=== PATIENT | female | born 1940 | race Caucasian/White ===

== ENCOUNTER 2020-12-25 12:30 | Emergency (ER) | payer MEDICARE, MEDICAID, SELFPAY ==
--- NOTE | ~2020-12-25 | CT_ITS ---
EXAMINATION: CT ABDOMEN AND PELVIS WITH CONTRAST CLINICAL INFORMATION: Abdominal pain and vomiting. COMPARISON: CT scan of July 17, 2010 TECHNIQUE: Multidetector volumetric images were obtained from the superior aspect of the liver through the pubic symphysis following administration 85 mL of Omnipaque 350 intravenous contrast. Sagittal and coronal reformatted images were obtained on the technologist's workstation. Oral contrast: No This CT examination was performed using dose optimization techniques as appropriate, variously including the following: *Automated exposure control *Adjustment of mA and/or kV according to patient size (this includes techniques or standardized protocols for targeted exams where dose is matched to indication/reason for exam; i.e. extremities or head) *Use of iterative reconstruction technique DLP: 324 mGy-cm FINDINGS: LUNG BASES: No pleural or pericardial effusion appreciated. The right hemidiaphragm is elevated. LIVER, GALLBLADDER, AND BILIARY TREE: The liver is normal in size, shape, and attenuation. No suspicious focal hepatic lesion or biliary ductal dilatation is present. There is a 1 cm low-density lesion consistent with stable cyst. Gallbladder is not identified. PANCREAS: No suspicious mass identified. No peripancreatic inflammatory change. SPLEEN: Unremarkable. ADRENAL GLANDS: Unremarkable. KIDNEYS AND URETERS: The kidneys have lobular contours. No suspicious mass identified. There is mild prominence of the left upper collecting system without dilatation of left ureter and without calculi identified. There are a few small cortical low density lesions seen within the left kidney likely representing small cysts. BLADDER: Urinary bladder has a very thickened with some pericystitis streaking. There is also mucosal enhancement present. No air is seen within the Above has the appearance of acute cystitis or infiltrating lesion of the urinary bladder. The prominence of the left upper collecting system may be related to back pressure from the urinary bladder. GASTROINTESTINAL TRACT: No dilated loops of large or small bowel are evident. No free air or free fluid. There is a large amount of stool seen distending the recto-sigmoid.. Between the urinary bladder and distended rectum and below the uterus there is an air fluid collection with some rim enhancement with the appearance of possible abscess. The collection measures approximately 6.2 x 1.6 x 2.4 cm in size. There is diverticulosis without definite diverticulitis of the sigmoid. Question the above appearance may be related to a colovaginal fistula. No gas is seen to suggest fistula to the urinary bladder. ABDOMINAL WALL: No significant hernia is appreciated. LYMPH NODES: No lymphadenopathy appreciated. VASCULAR: Portal vein patent. No abdominal aortic aneurysm. There is a single vessel giving supply to the celiac artery and superior mesenteric artery. PELVIC VISCERA: Appearance as described above in gastrointestinal tract section with abnormal enhancing urinary bladder and ureter between the urinary bladder and below the uterus.. OSSEOUS STRUCTURES: No suspicious destructive bony lesions identified. Osteopenia is present. There is a hemangioma within the T9 vertebral body. There is scoliosis of the lumbar spine convex left. There is multi level degenerative disc disease seen. Osteitis pubis present. CT/CT abdomen pelvis w con IMPRESSION: Thick walled enhancing urinary bladder with some adjacent stranding which may be on the basis of an infectious process versus infiltrating lesion. Air-fluid collection between the rectum and urinary bladder and inferior to the uterus which may be related to a vaginal fistula or abscess of the pathology. No gas is seen within the urinary bladder to suggest fistula to either bowel or vagina.
[2020-12-25 12:40] VITALS: BP 127/74; BP 136/62; PULSE 85; PULSE 93; RESP 16; TEMP 36.6; O2SAT 97; O2SAT 99; BMI 22.3
--- NOTE | 2020-12-25 12:47 | ECG_ITS ---
Test Reason : ABDOMINAL PAIN Blood Pressure : / mmHG Vent. Rate : 089 BPM Atrial Rate : 089 BPM P-R Int : 134 ms QRS Dur : 078 ms QT Int : 404 ms P-R-T Axes : 035 -20 012 degrees QTc Int : 491 ms Normal sinus rhythm Prolonged QT Abnormal ECG When compared with ECG of 06-OCT-2018 11:29, No significant change was found Referred By: Joaquina Lee Electronically Signed By:LEONARDO BRYANT MD
--- NOTE | 2020-12-25 12:49 | ED_ITS ---
HPI - General Adult General Chief complaint: General Medical <Joaquina Lee NP - Last Filed: 12/25/20 18:30> Stated complaint: FTT <Joaquina Lee NP - Last Filed: 12/25/20 18:30> Time Seen by Provider: 12/25/20 12:42 <Joaquina Lee NP - Last Filed: 12/25/20 18:30> Source: family and EMS <Joaquina Lee NP - Last Filed: 12/25/20 18:30> Mode of arrival: EMS <Joaquina Lee NP - Last Filed: 12/25/20 18:30> Limitations: altered mental status <Joaquina Lee NP - Last Filed: 12/25/20 18:30> History of Present Illness HPI narrative: 80-year-old female with a past medical history of multiple sclerosis, dementia, hypertension, GERD here with complaints of upper abdominal pain and nausea and vomiting for the last 3 days. Decreased p.o. intake. Now very weak and unable to ambulate at home. Has a history of GERD. Takes omeprazole daily. No diarrhea, constipation, fevers, chills, urinary symptoms. <Joaquina Lee NP - Last Filed: 12/25/20 18:30> Related Data Allergies/adverse reactions: Allergies Allergy/AdvReac Type Severity Reaction Status Date / Time Sulfa (Sulfonamide Allergy Unknown Verified 03/17/18 00:00 Antibiotics) acetaminophen [From PERCOCET] AdvReac Unknown N/V Unverified 02/22/20 14:44 oxycodone [From PERCOCET] AdvReac Unknown N/V Unverified 02/22/20 14:44 sulfamethoxazole AdvReac Unknown 'SICK' Unverified 02/22/20 14:44 [From BACTRIM] trimethoprim [From BACTRIM] AdvReac Unknown 'SICK' Unverified 02/22/20 14:44 <Joaquina Lee NP - Last Filed: 12/25/20 18:30> Review of Systems Review of Systems: Yes Unobtainable due to mental status (underlying dementia, hpi is limited ) <Joaquina Lee NP - Last Filed: 12/25/20 18:30> Gastrointestinal: Gastrointestinal: Reports abdominal pain, Reports nausea and Reports vomiting <Joaquina Lee NP - Last Filed: 12/25/20 18:30> Neurologic: Denies Abnormal speech present and Reports confusion <Joaquina Lee NP - Last Filed: 12/25/20 18:30> Psychiatric: Psychiatric: Reports confusion <Joaquina Lee NP - Last Filed: 12/25/20 18:30> [facility] Past Medical History Attestation statement: The following information was validated with the patient. <Joaquina Lee NP - Last Filed: 12/25/20 18:30> Source: old records reviewed and nursing notes reviewed <Joaquina Lee NP - Last Filed: 12/25/20 18:30> Medical History: Medical History Dementia HTN (hypertension) Multiple sclerosis Orthostatic hypotension <Joaquina Lee NP - Last Filed: 12/25/20 18:30> Social History Social History: Social History Smoked in Last 30 Days: No Use of substances other than those prescribed or required for medical reasons: No Advance Directives: No Advance Directives Information Provided: Yes <Joaquina Lee NP - Last Filed: 12/25/20 18:30> Physical Exam Vital Signs: Vital Signs: Last Vital Signs Temp 97.7 F 12/25/20 16:09 Pulse 75 12/25/20 16:09 Resp 18 12/25/20 18:00 BP 168/90 H 12/25/20 16:09 Pulse Ox 98 12/25/20 16:09 Body Mass Index 22.3 <Joaquina Lee NP - Last Filed: 12/25/20 18:30> Vital Signs: Last Vital Signs Temp 97.7 F 12/25/20 16:09 Pulse 75 12/25/20 16:09 Resp 18 12/25/20 18:00 BP 168/90 H 12/25/20 16:09 Pulse Ox 98 12/25/20 16:09 Body Mass Index 22.3 <Grzegorz Mcgregor MD - Last Filed: 12/25/20 17:24> Const: Other: Thin appearing, disheveled <Joaquina Lee NP - Last Filed: 12/25/20 18:30> General: awake and confusion <Joaquina Lee NP - Last Filed: 12/25/20 18:30> Orientation/consciousness: confusion <Joaquina Lee NP - Last Filed: 12/25/20 18:30> Limitations: no limitations <Joaquina Lee NP - Last Filed: 12/25/20 18:30> HENMT: Head: Yes normal to inspection <Joaquina Lee NP - Last Filed: 12/25/20 18:30> Ears: hearing grossly normal bilaterally <Joaquina Lee NP - Last Filed: 12/25/20 18:30> General nose exam: Normal external nose present <Joaquina Lee NP - Last Filed: 12/25/20 18:30> Face and sinus: Yes normal facial exam <Joaquina Lee NP - Last Filed: 12/25/20 18:30> Mouth: Normal oral and palatal mucosa present <Joaquina Lee NP - Last Filed: 12/25/20 18:30> Throat: Yes posterior oropharynx normal <Joaquina Lee NP - Last Filed: 12/25/20 18:30> Eyes: General: appearance normal, both eyes and all related structures < Joaquina Lee NP - Last Filed: 12/25/20 18:30> Pupils: Equal, round and reactive pupils present <Joaquina Lee NP - Last Filed: 12/25/20 18:30> Neck: Neck: Yes normal visual inspection <Joaquina Lee NP - Last Filed: 12/25/20 18:30> Chest: Chest palpation & inspection: normal inspection of the chest <Joaquina Lee NP - Last Filed: 12/25/20 18:30> Resp: Effort & Inspection: normal respiratory effort <Joaquina Lee NP - Last Filed: 12/25/20 18:30> Auscultation: clear to auscultation bilaterally <Joaquina Lee NP - Last Filed: 12/25/20 18:30> Cardio: Rate: regular rate <Joaquina Lee NP - Last Filed: 12/25/20 18:30> Rhythm: regular rhythm <Joaquina Lee NP - Last Filed: 12/25/20 18:30> Peripheral pulses: Peripheral pulses 2+ throughout <Joaquina Lee NP - Last Filed: 12/25/20 18:30> GI: Inspection: Yes normal to inspection <Joaquina Lee NP - Last Filed: 12/25/20 18:30> Palpation (GI): Soft to palpation and Tenderness to palpation present (GI) (Mild epigastric tenderness. No rebound or guarding) <Joaquina Lee NP - Last Filed: 12/25/20 18:30> Auscultation: normal bowel sounds <Joaquina Lee NP - Last Filed: 12/25/20 18:30> Back/Spine/Pelvis: Thoracic/Lumbar Spine: thoracic and lumbar spine normal to inspection <Joaquina Lee NP - Last Filed: 12/25/20 18:30> Skin: General skin exam: no rashes or lesions noted <Joaquina Lee NP - Last Filed: 12/25/20 18:30> Neuro: General: no focal motor deficits, normal sensation to monofilament and confusion <Joaquina Lee NP - Last Filed: 12/25/20 18:30> Cranial nerves: Yes Equal, round and reactive pupils present <Joaquina Lee NP - Last Filed: 12/25/20 18:30> Cognition (Neuro): normal cognition <Joaquina Lee NP - Last Filed: 12/25/20 18:30> Speech: No Abnormal speech present <Joaquina Lee NP - Last Filed: 12/25/20 18:30> Gait exam (Neuro): Normal gait present <Joaquina Lee NP - Last Filed: 12/25/20 18:30> Motor exam (neuro): 5/5 motor strength present throughout <Joaquina Lee NP - Last Filed: 12/25/20 18:30> Extrem: General: Yes normal to inspection <Joaquina Lee NP - Last Filed: 12/25/20 18:30> Course Course Course Narrative: 80-year-old female here with complaints of upper abdominal discomfort with vomiting for the last few days. Now feeling generally weak and unable to ambulate due to weakness. On exam she has mild diffuse tendernes. No rebound or guarding. She is very disheveled and thin appearing will check labs, EKG, CT, UA 1720-labs show a leukocytosis. The patient has a UTI. She has a CT that shows a thick-walled enhancing urinary bladder with some adjacent stranding which may be on the basis of an infectious process versus infiltrating lesion. There is air fluid collection between the rectum and urinary bladder and inferior to the uterus which may be related to a vaginal fistula or abscess. No gas seen. At this time infection is suspected. Antibiotics ordered. Spoke to our general surgery department (dr Foote). Patient will likely benefit from a urology consultation for further evaluation. At this time we do not have Urology coverage here at [facility]. Will need transfer to tertiary care center where this performed. 1730[place] [facility] 1820[place] [facility] [place] 1830-Spoke to transfer line. Accepting physician Dr Hayden. <Joaquina Lee NP - Last Filed: 12/25/20 18:30> I have discussed the case and management with the KHALIDA <Grzegorz Mcgregor MD - Last Filed: 12/25/20 17:24> Medical Decision Making Medical Records Medical records reviewed: Yes I reviewed the patient's medical records. <Joaquina Lee NP - Last Filed: 12/25/20 18:30> Lab Data Lab results reviewed: Yes I reviewed the patient's lab results. <Joaquina Lee NP - Last Filed: 12/25/20 18:30> Result diagrams: : 12/25/20 13:08 12/25/20 13:08 <Joaquina Lee NP - Last Filed: 12/25/20 18:30> Labs: Lab Results 12/25/20 12/25/20 12/25/20 Range/Units 13:07 13:08 13:08 WBC 18.2 H (4.8-10.8) X10*3/uL RBC 3.92 L (4.20-5.50) X10*6/uL Hgb 11.6 L (12.0-16.0) g/dl Hct 35.1 L (37-47) % MCV 89.5 (80-98) fL MCH 29.6 (27.0-33.0) pg MCHC 33.0 (31.0-35.0) g/dl RDW 13.6 (11.0-16.0) % Plt Count 395 (160-400) X10*3/uL MPV 8.9 L (9.4-12.3) fL Immature Gran % (Auto) 0.7 H (0.0-0.4) % Neut % (Auto) 84.7 H (45-73) % Lymph % (Auto) 9.7 L (20-40) % Cross % (Auto) 4.5 (2-11) % Eos % (Auto) 0.2 (0-4) % Baso % (Auto) 0.2 (0-2) % Lymph # (Auto) 1.8 (1.2-4.9) X10*3/uL Cross # (Auto) 0.8 (0.1-1.2) X10*3/uL Eos # (Auto) 0.0 (0.0-0.4) X10*3/uL Baso # (Auto) 0.0 (0.0-0.2) X10*3/uL Abs Immat Gran (auto) 0.12 H (0.00-0.03) X10*3/uL Absolute Neuts (auto) 15.4 H (2.0-8.3) X10*3/uL Absolute Nucleated RBC 0.000 (0.0-0.012) X10*3/uL Nucleated RBC % (auto) 0.0 (0.0-0.2) /100WBC Sodium 136 (135-145) mmol/L Potassium 3.3 (3.3-5.1) mmol/L Chloride 99 (96-108) mmol/L Carbon Dioxide 27 (22-29) mmol/L Anion Gap 13 (12-20) BUN 13 (9-16) mg/dL Creatinine 0.78 (0.5-1.4) mg/dL Estim Creat Clear Calc 48.8 Estimated GFR > 60 Random Glucose 115 (60-115) mg/dL Lactic Acid (0.5-2.0) mmol/L Calcium 9.7 (8.4-10.2) mg/dL Magnesium 1.8 (1.6-2.6) mg/dL Total Bilirubin 0.5 (0.0-1.0) mg/dL Direct Bilirubin 0.3 (0.0-0.5) mg/dL AST 14 (5-31) U/L ALT 7 (0-31) U/L Alkaline Phosphatase 62 (39-117) U/L Troponin I High Sens (<3.5-17.0) ng/L Total Protein 6.4 L (6.5-8.0) g/dL Albumin 3.3 L (3.5-5.0) g/dL Urine Color Urine Appearance Urine pH (5.0-8.0) Ur Specific [place]azy (1.005-1.025) Urine Protein (NEG-TRACE) MG/DL Urine Glucose (UA) (NEG) MG/DL Urine Ketones (NEG) MG/DL Urine Blood (NEG) Urine Nitrite (NEG) Ur Leukocyte Esterase (NEG) Urine RBC (0) /HPF Urine WBC (0-4) /HPF Ur Squamous Epith Cells /LPF Urine Bacteria /LPF COVID-19 (PENG) (Negative) COVID-19 Clin Com 12/25/20 12/25/20 12/25/20 Range/Units 13:08 14:38 16:55 WBC (4.8-10.8) X10*3/uL RBC (4.20-5.50) X10*6/uL Hgb (12.0-16.0) g/dl Hct (37-47) % MCV (80-98) fL MCH (27.0-33.0) pg MCHC (31.0-35.0) g/dl RDW (11.0-16.0) % Plt Count (160-400) X10*3/uL MPV (9.4-12.3) fL Immature Gran % (Auto) (0.0-0.4) % Neut % (Auto) (45-73) % Lymph % (Auto) (20-40) % Cross % (Auto) (2-11) % Eos % (Auto) (0-4) % Baso % (Auto) (0-2) % Lymph # (Auto) (1.2-4.9) X10*3/uL Cross # (Auto) (0.1-1.2) X10*3/uL Eos # (Auto) (0.0-0.4) X10*3/uL Baso # (Auto) (0.0-0.2) X10*3/uL Abs Immat Gran (auto) (0.00-0.03) X10*3/uL Absolute Neuts (auto) (2.0-8.3) X10*3/uL Absolute Nucleated RBC (0.0-0.012) X10*3/uL Nucleated RBC % (auto) (0.0-0.2) /100WBC Sodium (135-145) mmol/L Potassium (3.3-5.1) mmol/L Chloride (96-108) mmol/L Carbon Dioxide (22-29) mmol/L Anion Gap (12-20) BUN (9-16) mg/dL Creatinine (0.5-1.4) mg/dL Estim Creat Clear Calc Estimated GFR Random Glucose (60-115) mg/dL Lactic Acid 1.2 (0.5-2.0) mmol/L Calcium (8.4-10.2) mg/dL Magnesium (1.6-2.6) mg/dL Total Bilirubin (0.0-1.0) mg/dL Direct Bilirubin (0.0-0.5) mg/dL AST (5-31) U/L ALT (0-31) U/L Alkaline Phosphatase (39-117) U/L Troponin I High Sens 7.4 (<3.5-17.0) ng/L Total Protein (6.5-8.0) g/dL Albumin (3.5-5.0) g/dL Urine Color YELLOW Urine Appearance CLOUDY Urine pH 7.0 (5.0-8.0) Ur Specific [place] <= 1.005 (1.005-1.025) Urine Protein 2+ H (NEG-TRACE) MG/DL Urine Glucose (UA) NEG (NEG) MG/DL Urine Ketones NEG (NEG) MG/DL Urine Blood 3+ H (NEG) Urine Nitrite NEG (NEG) Ur Leukocyte Esterase 1+ H (NEG) Urine RBC 10-14 H (0) /HPF Urine WBC 30-49 H (0-4) /HPF Ur Squamous Epith Cells 1+ /LPF Urine Bacteria 1+ /LPF COVID-19 (PENG) (Negative) COVID-19 Clin Com 12/25/20 Range/Units 17:30 WBC (4.8-10.8) X10*3/uL RBC (4.20-5.50) X10*6/uL Hgb (12.0-16.0) g/dl Hct (37-47) % MCV (80-98) fL MCH (27.0-33.0) pg MCHC (31.0-35.0) g/dl RDW (11.0-16.0) % Plt Count (160-400) X10*3/uL MPV (9.4-12.3) fL Immature Gran % (Auto) (0.0-0.4) % Neut % (Auto) (45-73) % Lymph % (Auto) (20-40) % Cross % (Auto) (2-11) % Eos % (Auto) (0-4) % Baso % (Auto) (0-2) % Lymph # (Auto) (1.2-4.9) X10*3/uL Cross # (Auto) (0.1-1.2) X10*3/uL Eos # (Auto) (0.0-0.4) X10*3/uL Baso # (Auto) (0.0-0.2) X10*3/uL Abs Immat Gran (auto) (0.00-0.03) X10*3/uL Absolute Neuts (auto) (2.0-8.3) X10*3/uL Absolute Nucleated RBC (0.0-0.012) X10*3/uL Nucleated RBC % (auto) (0.0-0.2) /100WBC Sodium (135-145) mmol/L Potassium (3.3-5.1) mmol/L Chloride (96-108) mmol/L Carbon Dioxide (22-29) mmol/L Anion Gap (12-20) BUN (9-16) mg/dL Creatinine (0.5-1.4) mg/dL Estim Creat Clear Calc Estimated GFR Random Glucose (60-115) mg/dL Lactic Acid (0.5-2.0) mmol/L Calcium (8.4-10.2) mg/dL Magnesium (1.6-2.6) mg/dL Total Bilirubin (0.0-1.0) mg/dL Direct Bilirubin (0.0-0.5) mg/dL AST (5-31) U/L ALT (0-31) U/L Alkaline Phosphatase (39-117) U/L Troponin I High Sens (<3.5-17.0) ng/L Total Protein (6.5-8.0) g/dL Albumin (3.5-5.0) g/dL Urine Color Urine Appearance Urine pH (5.0-8.0) Ur Specific [place] (1.005-1.025) Urine Protein (NEG-TRACE) MG/DL Urine Glucose (UA) (NEG) MG/DL Urine Ketones (NEG) MG/DL Urine Blood (NEG) Urine Nitrite (NEG) Ur Leukocyte Esterase (NEG) Urine RBC (0) /HPF Urine WBC (0-4) /HPF Ur Squamous Epith Cells /LPF Urine Bacteria /LPF COVID-19 (PENG) Negative (Negative) COVID-19 Clin Com See Note <Joaquina Lee, ANIVAL - Last Filed: 12/25/20 18:30> Lab Results 12/25/20 12/25/20 12/25/20 Range/Units 13:07 13:08 13:08 WBC 18.2 H (4.8-10.8) X10*3/uL RBC 3.92 L (4.20-5.50) X10*6/uL Hgb 11.6 L (12.0-16.0) g/dl Hct 35.1 L (37-47) % MCV 89.5 (80-98) fL MCH 29.6 (27.0-33.0) pg MCHC 33.0 (31.0-35.0) g/dl RDW 13.6 (11.0-16.0) % Plt Count 395 (160-400) X10*3/uL MPV 8.9 L (9.4-12.3) fL Immature Gran % (Auto) 0.7 H (0.0-0.4) % Neut % (Auto) 84.7 H (45-73) % Lymph % (Auto) 9.7 L (20-40) % Cross % (Auto) 4.5 (2-11) % Eos % (Auto) 0.2 (0-4) % Baso % (Auto) 0.2 (0-2) % Lymph # (Auto) 1.8 (1.2-4.9) X10*3/uL Cross # (Auto) 0.8 (0.1-1.2) X10*3/uL Eos # (Auto) 0.0 (0.0-0.4) X10*3/uL Baso # (Auto) 0.0 (0.0-0.2) X10*3/uL Abs Immat Gran (auto) 0.12 H (0.00-0.03) X10*3/uL Absolute Neuts (auto) 15.4 H (2.0-8.3) X10*3/uL Absolute Nucleated RBC 0.000 (0.0-0.012) X10*3/uL Nucleated RBC % (auto) 0.0 (0.0-0.2) /100WBC Sodium 136 (135-145) mmol/L Potassium 3.3 (3.3-5.1) mmol/L Chloride 99 (96-108) mmol/L Carbon Dioxide 27 (22-29) mmol/L Anion Gap 13 (12-20) BUN 13 (9-16) mg/dL Creatinine 0.78 (0.5-1.4) mg/dL Estim Creat Clear Calc 48.8 Estimated GFR > 60 Random Glucose 115 (60-115) mg/dL Lactic Acid (0.5-2.0) mmol/L Calcium 9.7 (8.4-10.2) mg/dL Magnesium 1.8 (1.6-2.6) mg/dL Total Bilirubin 0.5 (0.0-1.0) mg/dL Direct Bilirubin 0.3 (0.0-0.5) mg/dL AST 14 (5-31) U/L ALT 7 (0-31) U/L Alkaline Phosphatase 62 (39-117) U/L Troponin I High Sens (<3.5-17.0) ng/L Total Protein 6.4 L (6.5-8.0) g/dL Albumin 3.3 L (3.5-5.0) g/dL Urine Color Urine Appearance Urine pH (5.0-8.0) Ur Specific [place] (1.005-1.025) Urine Protein (NEG-TRACE) MG/DL Urine Glucose (UA) (NEG) MG/DL Urine Ketones (NEG) MG/DL Urine Blood (NEG) Urine Nitrite (NEG) Ur Leukocyte Esterase (NEG) Urine RBC (0) /HPF Urine WBC (0-4) /HPF Ur Squamous Epith Cells /LPF Urine Bacteria /LPF COVID-19 (PENG) (Negative) COVID-19 Clin Com 12/25/20 12/25/20 12/25/20 Range/Units 13:08 14:38 16:55 WBC (4.8-10.8) X10*3/uL RBC (4.20-5.50) X10*6/uL Hgb (12.0-16.0) g/dl Hct (37-47) % MCV (80-98) fL MCH (27.0-33.0) pg MCHC (31.0-35.0) g/dl RDW (11.0-16.0) % Plt Count (160-400) X10*3/uL MPV (9.4-12.3) fL Immature Gran % (Auto) (0.0-0.4) % Neut % (Auto) (45-73) % Lymph % (Auto) (20-40) % Cross % (Auto) (2-11) % Eos % (Auto) (0-4) % Baso % (Auto) (0-2) % Lymph # (Auto) (1.2-4.9) X10*3/uL Cross # (Auto) (0.1-1.2) X10*3/uL Eos # (Auto) (0.0-0.4) X10*3/uL Baso # (Auto) (0.0-0.2) X10*3/uL Abs Immat Gran (auto) (0.00-0.03) X10*3/uL Absolute Neuts (auto) (2.0-8.3) X10*3/uL Absolute Nucleated RBC (0.0-0.012) X10*3/uL Nucleated RBC % (auto) (0.0-0.2) /100WBC Sodium (135-145) mmol/L Potassium (3.3-5.1) mmol/L Chloride (96-108) mmol/L Carbon Dioxide (22-29) mmol/L Anion Gap (12-20) BUN (9-16) mg/dL Creatinine (0.5-1.4) mg/dL Estim Creat Clear Calc Estimated GFR Random Glucose (60-115) mg/dL Lactic Acid 1.2 (0.5-2.0) mmol/L Calcium (8.4-10.2) mg/dL Magnesium (1.6-2.6) mg/dL Total Bilirubin (0.0-1.0) mg/dL Direct Bilirubin (0.0-0.5) mg/dL AST (5-31) U/L ALT (0-31) U/L Alkaline Phosphatase (39-117) U/L Troponin I High Sens 7.4 (<3.5-17.0) ng/L Total Protein (6.5-8.0) g/dL Albumin (3.5-5.0) g/dL Urine Color YELLOW Urine Appearance CLOUDY Urine pH 7.0 (5.0-8.0) Ur Specific [place] <= 1.005 (1.005-1.025) Urine Protein 2+ H (NEG-TRACE) MG/DL Urine Glucose (UA) NEG (NEG) MG/DL Urine Ketones NEG (NEG) MG/DL Urine Blood 3+ H (NEG) Urine Nitrite NEG (NEG) Ur Leukocyte Esterase 1+ H (NEG) Urine RBC 10-14 H (0) /HPF Urine WBC 30-49 H (0-4) /HPF Ur Squamous Epith Cells 1+ /LPF Urine Bacteria 1+ /LPF COVID-19 (PENG) (Negative) COVID-19 Clin Com 12/25/20 Range/Units 17:30 WBC (4.8-10.8) X10*3/uL RBC (4.20-5.50) X10*6/uL Hgb (12.0-16.0) g/dl Hct (37-47) % MCV (80-98) fL MCH (27.0-33.0) pg MCHC (31.0-35.0) g/dl RDW (11.0-16.0) % Plt Count (160-400) X10*3/uL MPV (9.4-12.3) fL Immature Gran % (Auto) (0.0-0.4) % Neut % (Auto) (45-73) % Lymph % (Auto) (20-40) % Cross % (Auto) (2-11) % Eos % (Auto) (0-4) % Baso % (Auto) (0-2) % Lymph # (Auto) (1.2-4.9) X10*3/uL Cross # (Auto) (0.1-1.2) X10*3/uL Eos # (Auto) (0.0-0.4) X10*3/uL Baso # (Auto) (0.0-0.2) X10*3/uL Abs Immat Gran (auto) (0.00-0.03) X10*3/uL Absolute Neuts (auto) (2.0-8.3) X10*3/uL Absolute Nucleated RBC (0.0-0.012) X10*3/uL Nucleated RBC % (auto) (0.0-0.2) /100WBC Sodium (135-145) mmol/L Potassium (3.3-5.1) mmol/L Chloride (96-108) mmol/L Carbon Dioxide (22-29) mmol/L Anion Gap (12-20) BUN (9-16) mg/dL Creatinine (0.5-1.4) mg/dL Estim Creat Clear Calc Estimated GFR Random Glucose (60-115) mg/dL Lactic Acid (0.5-2.0) mmol/L Calcium (8.4-10.2) mg/dL Magnesium (1.6-2.6) mg/dL Total Bilirubin (0.0-1.0) mg/dL Direct Bilirubin (0.0-0.5) mg/dL AST (5-31) U/L ALT (0-31) U/L Alkaline Phosphatase (39-117) U/L Troponin I High Sens (<3.5-17.0) ng/L Total Protein (6.5-8.0) g/dL Albumin (3.5-5.0) g/dL Urine Color Urine Appearance Urine pH (5.0-8.0) Ur Specific [place] (1.005-1.025) Urine Protein (NEG-TRACE) MG/DL Urine Glucose (UA) (NEG) MG/DL Urine Ketones (NEG) MG/DL Urine Blood (NEG) Urine Nitrite (NEG) Ur Leukocyte Esterase (NEG) Urine RBC (0) /HPF Urine WBC (0-4) /HPF Ur Squamous Epith Cells /LPF Urine Bacteria /LPF COVID-19 (PENG) Negative (Negative) COVID-19 Clin Com See Note <Grzegorz Mcgregor MD - Last Filed: 12/25/20 17:24> Imaging Data CT scan - abdomen: Attestation: I personally reviewed and interpreted this imaging study as follows: <Joaquina Lee NP - Last Filed: 12/25/20 18:30> Radiologist's impression: IMPRESSION: Thick walled enhancing urinary bladder with some adjacent stranding which may be on the basis of an infectious process versus infiltrating lesion. Air-fluid collection between the rectum and urinary bladder and inferior to the uterus which may be related to a vaginal fistula or abscess of the pathology. No gas is seen within the urinary bladder to suggest fistula to either bowel or vagina. <Joaquina Lee NP - Last Filed: 12/25/20 18:30> ECG Data Attestation: I personally reviewed and interpreted this ECG as follows: <Joaquina Lee NP - Last Filed: 12/25/20 18:30> Interpretation: Normal sinus rhythm with a rate of 89, normal MD, normal QRS, QTC 491 <Joaquina Lee NP - Last Filed: 12/25/20 18:30> Discharge Plan Discharge Clinical Impression: Acute UTI, Leukocytosis, Recto-bladder neck fistula <ANIVAL Peter Last Filed: 12/25/20 18:30> Patient Disposition: [facility] <Joaquina Lee NP - Last Filed: 12/25/20 18:30> Transfer Details: [facility] <Joaquina Lee NP - Last Filed: 12/25/20 18:30> [facility] <Grzegorz Mcgregor MD - Last Filed: 12/25/20 17:24>
[2020-12-25 13:57] LABS: MANUAL DIFF FLAG NO
[2020-12-25 14:00] LABS: Basophils Percent Auto 0.2 % (0-2); Eosinophils Percent Auto 0.2 % (0-4); Hematocrit 35.1 % (37-47); Hemoglobin 11.6 g/dl (12.0-16.0); Imm Gran Abs Auto 0.12 X10*3/uL (0.00-0.03); Imm Gran Pct Auto 0.7 % (0.0-0.4); Lymphocytes Absolute Auto 1.8 X10*3/uL (1.2-4.9); Lymphocytes Percent Auto 9.7 % (20-40); Mean Corpuscular Hemoglobin 29.6 pg (27.0-33.0); Mean Corpuscular Volume 89.5 fL (80-98); Mean Platelet Volume 8.9 fL (9.4-12.3); Monocytes Absolute Auto 0.8 X10*3/uL (0.1-1.2); Monocytes Percent Auto 4.5 % (2-11); Neutrophils Absolute Auto 15.4 X10*3/uL (2.0-8.3); Neutrophils Percent Auto 84.7 % (45-73); Platelet Count 395 X10*3/uL (160-400); Red Blood Count 3.92 X10*6/uL (4.20-5.50); Red Cell Distribution Width 13.6 % (11.0-16.0); White Blood Count 18.2 X10*3/uL (4.8-10.8)
[2020-12-25 14:27] LABS: Magnesium 1.8 mg/dL (1.6-2.6)
[2020-12-25 14:28] LABS: Anion Gap 13 (12-20); Bilirubin Direct 0.3 mg/dL (0.0-0.5); Bilirubin Total 0.5 mg/dL (0.0-1.0); Blood Urea Nitrogen 13 mg/dL (9-16); Calcium 9.7 mg/dL (8.4-10.2); Carbon Dioxide 27 mmol/L (22-29); Chloride 99 mmol/L (96-108); Creatinine Clr Calc Pharmacy 48.8; Estimated Glomerular Filt Rate > 60; Glucose Random 115 mg/dL (60-115); Potassium 3.3 mmol/L (3.3-5.1); Sodium 136 mmol/L (135-145)
[2020-12-25 14:29] LABS: Alanine Aminotransferase 7 U/L (0-31); Albumin Level 3.3 g/dL (3.5-5.0); Alkaline Phosphatase 62 U/L (39-117); Aspartate Amino Transferase 14 U/L (5-31); Total Protein 6.4 g/dL (6.5-8.0)
[2020-12-25 14:32] LABS: Troponin-I High Sensitivity 7.4 ng/L (<3.5-17.0)
[2020-12-25 14:59] LABS: Lactic Acid 1.2 mmol/L (0.5-2.0)
[2020-12-25] MEDS: iohexoL 350 MG/ML 100 ML INFUS..BTL IV (15:02)
[2020-12-25 16:09] VITALS: BP 168/90; PULSE 75; RESP 16; TEMP 36.5; O2SAT 98
[2020-12-25] MEDS: 0.9 % Sodium Chloride 1,000 ML 999 ML IV (16:59)
[2020-12-25 17:04] LABS: Glucose Urine UA NEG (NEG); Leukocyte Esterase Urine 1+ (NEG); Nitrite Urine NEG (NEG); Specific Gravity - Urine <= 1.005 (1.005-1.025); UACC Culture Trigger YES; Urine Blood 3+ (NEG); Urine Ketones NEG (NEG); Urine Protein 2+ MG/DL (NEG-TRACE)
[2020-12-25 17:05] LABS: Appearance Urine CLOUDY; Color Urine YELLOW
[2020-12-25 17:20] LABS: Bacteria Urine 1+ /LPF; Squamous Epithelial Cell Urine 1+ /LPF; WBC Urine 30-49 /HPF (0-4)
--- NOTE | 2020-12-25 17:20 | MHC.CM.ED ---
Cm received a call from Gonzalo Duenas at [facility] regarding this patient. According to Gonzalo, they have a bed for her. Family works at [facility]. Gonzalo suggests that STR would be the way to admit, with the probability for LTC per family request. Per Joaquina N.P., pt will be admitted to the hospital. Referral placed in [employer] regarding pt being admitted and with request to follow. CM to monitor for d/c needs.
[2020-12-25] MEDS: Piperacillin Sodium/Tazobactam 3.375 GM in 0.9 % Sodium Chloride 50 ML IV (17:44)
[2020-12-25 18:00] VITALS: RESP 18
[2020-12-25 18:24] LABS: COVID-19 Test Negative (Negative)
--- NOTE | 2020-12-25 18:42 | PHA.MEDREC ---
Pharmacy Consult ? Medication Reconciliation Pharmacy has completed the medication reconciliation from pharmacy fill history. PT is unclear as to the meds she is taking. A call was placed to her but not returned.
--- NOTE | 2020-12-25 18:57 | MHC.CM.ED ---
Pt being transported to [facility] for urology via [facility]. Booked for [facility]. Transferring to [facility] ED. RN to call report and speak with family. [facility] notified via [employer]. Accepting MD is Dr. Ruffin
--- NOTE | 2020-12-25 19:40 | MHC.CM.ED ---
MERISSA spoke with family at request of RN. Spoke with , Riki ([phone]) to update him on patient condition and need to transfer to [facility] for further care. Daughter, La ([phone]) called CM. Reviewed plan of care and reasons for transfer. La aware that [facility] has a bed for her for STR with possible LTC. La states her mother does not want to go to a detention. La states her mother is unable to walk and is very weak. Very tearful on telephone, as she cannot take care of her. Explained to La that her mother will continue her care at [facility] [facility], and then will need a PT evaluation while she is there. Encouraged La to speak with staff about bed at [facility]. [facility] contacted by MERISSA via [employer] to inform them the pt transfer to [facility]. Pt awaiting transport to [facility] via [facility]. Transport verified by telephone .
== END 2020-12-25 19:51 | disposition short-term general hospital (02) ==
PROVIDERS: Nurse Practitioner Family; Emergency Provider Emergency Medicine; PCP Internal Medicine Medical Oncology
DX: N39.0 Urinary tract infection, site not specified (principal); N32.1 Vesicointestinal fistula; G35 Multiple sclerosis; F03.90 Unspecified dementia, unspecified severity, without behavioral disturbance, psychotic disturbance, mood disturbance, and anxiety; I10 Essential (primary) hypertension; K21.9 Gastro-esophageal reflux disease without esophagitis; Z79.899 Other long term (current) drug therapy; Z20.822 Contact with and (suspected) exposure to COVID-19
CPT/HCPCS: 36415; 51701; 74177; 80048; 80076; 81001; 81003; 83605; 83735; 84484; 85025; 87040; 87086; 87088; 87186; 87635; 93005; 96361; 96365; 99285; J2543; Q9967

== ENCOUNTER 2021-06-20 17:39 | Inpatient (IN) | payer MEDICARE, MEDICAID, SELFPAY ==
--- NOTE | 2021-06-20 | ECG_ITS ---
Test Reason : SVT Blood Pressure : / mmHG Vent. Rate : 197 BPM Atrial Rate : 000 BPM P-R Int : 000 ms QRS Dur : 162 ms QT Int : 220 ms P-R-T Axes : 000 -21 088 degrees QTc Int : [address] depression diffusely, possible ischemia Abnormal ECG When compared with ECG of 20-JUN-2021 20:15, rhythm change Referred By: Bridget Araujo Electronically Signed By:ELOY DANGELO
--- NOTE | ~2021-06-20 | XR_ITS ---
EXAMINATION: XR CHEST CLINICAL INFORMATION: Medical clearance COMPARISON: 10/06/2018 TECHNIQUE: Frontal view of the chest was obtained. FINDINGS: Again noted is a elevated right hemidiaphragm. Heart size normal. No evidence of CHF. No infiltrates, effusions or lung masses are seen. Thoracic scoliosis is again noted. XR/XR chest 1V IMPRESSION: No acute intrathoracic disease.
--- NOTE | ~2021-06-20 | XR_ITS ---
EXAMINATION: XR CHEST CLINICAL INFORMATION: Hypoxia. Covid infection. Shortness of breath. COMPARISON: Previous chest x-ray most recent June 2021 TECHNIQUE: Frontal view of the chest was obtained. FINDINGS: The cardiac and mediastinal contours are stable. There is elevation of the right hemidiaphragm. There are increased markings seen suggestive of bilateral perihilar infiltrates, right greater than left. This appears increased from recent exam 06/20/2021. There is elevation of the right hemidiaphragm. There is no pleural effusion or pneumothorax. There is scoliosis and degenerative changes of the spine. XR/XR chest 1V IMPRESSION: Increasing bilateral perihilar infiltrates.
--- NOTE | 2021-06-20 17:51 | ECG_ITS ---
Test Reason : WEAKNESS Blood Pressure : / mmHG Vent. Rate : 083 BPM Atrial Rate : 083 BPM P-R Int : 142 ms QRS Dur : 078 ms QT Int : 398 ms P-R-T Axes : 056 -18 035 degrees QTc Int : 467 ms Normal sinus rhythm Normal ECG When compared with ECG of 25-DEC-2020 13:03, No significant change was found Referred By: Bridget Araujo Electronically Signed By:ELOY DANGELO
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
[2021-06-20 17:57] VITALS: PULSE 102; RESP 16; TEMP 37.9; O2SAT 94; BMI 20.4
[2021-06-20 18:29] LABS: MANUAL DIFF FLAG NO
[2021-06-20 18:31] LABS: Basophils Percent Auto 0.2 % (0-2); Hematocrit 38.5 % (37.0-47.0); Hemoglobin 12.9 g/dl (12.0-16.0); Imm Gran Abs Auto 0.06 X10*3/uL (0.00-0.03); Imm Gran Pct Auto 0.5 % (0.0-0.4); Lymphocytes Absolute Auto 0.7 X10*3/uL (1.2-4.9); Lymphocytes Percent Auto 5.9 % (20-40); Mean Corpuscular HGB Conc 33.5 g/dl (31.0-35.0); Mean Corpuscular Hemoglobin 31.8 pg (27.0-33.0); Mean Corpuscular Volume 94.8 fL (80.0-98.0); Mean Platelet Volume 9.5 fL (9.4-12.3); Monocytes Absolute Auto 0.5 X10*3/uL (0.1-1.2); Monocytes Percent Auto 3.9 % (2-11); Neutrophils Percent Auto 89.5 % (45-73); Platelet Count 183 X10*3/uL (160-400); Red Blood Count 4.06 X10*6/uL (4.20-5.50); Red Cell Distribution Width 13.4 % (11.0-16.0); White Blood Count 12.3 X10*3/uL (4.8-10.8)
[2021-06-20 18:36] LABS: COVID-19 Test Positive (Negative)
[2021-06-20 18:50] LABS: Lactic Acid 1.5 mmol/L (0.5-2.0)
[2021-06-20 18:55] LABS: B Type Natriuretic Peptide 21 pg/mL (<100); Troponin-I High Sensitivity 18.8 ng/L (<3.5-17.0)
[2021-06-20] MEDS: 0.9 % Sodium Chloride 1,000 ML 999 ML IV (18:55)
[2021-06-20 18:57] LABS: Alanine Aminotransferase 22 U/L (0-31); Albumin Level 3.9 g/dL (3.5-5.0); Alkaline Phosphatase 49 U/L (39-117); Anion Gap 20 (12-20); Aspartate Amino Transferase 34 U/L (5-31); Bilirubin Direct 0.2 mg/dL (0.0-0.5); Bilirubin Total 0.5 mg/dL (0.0-1.0); Blood Urea Nitrogen 32 mg/dL (9-16); Calcium 9.9 mg/dL (8.4-10.2); Carbon Dioxide 18 mmol/L (22-29); Chloride 106 mmol/L (96-108); Creatinine Clr Calc Pharmacy 36.3; Estimated Glomerular Filt Rate 56; Glucose Random 104 mg/dL (60-115); Lipase 17 U/L (8-78); Potassium 4.1 mmol/L (3.3-5.1); Sodium 140 mmol/L (135-145)
[2021-06-20 19:28] LABS: Appearance Urine CLOUDY; Color Urine YELLOW; Glucose Urine UA NEG (NEG); Leukocyte Esterase Urine 2+ (NEG); Nitrite Urine NEG (NEG); Specific Gravity - Urine 1.025 (1.005-1.025); UACC Culture Trigger YES; Urine Blood 3+ (NEG); Urine Ketones 15 MG/DL (NEG); Urine Protein 2+ MG/DL (NEG-TRACE)
[2021-06-20] MEDS: cefTRIAXone sodium 1 GM in 0.9 % Sodium Chloride 50 ML IV (19:31)
[2021-06-20 19:33] LABS: WBC Urine TNTC /HPF (0-4)
[2021-06-20 19:34] LABS: Bacteria Urine 4+ /LPF; Squamous Epithelial Cell Urine 1+ /LPF
--- NOTE | 2021-06-20 21:09 | PHA.MEDREC ---
Pharmacy Consult ? Medication Reconciliation Pharmacy has completed the medication reconciliation. Spoke to patient's daughter La who says she handles her medications. No remarkable issues. Anna Cano, PharmD
--- NOTE | 2021-06-20 21:38 | PC.NURSE ---
moved pt in 14 - informed pt of covid status. pt on monitor HR 190s, informed MD, pt with no complaints. EKG obtained, adenosine 6mg pushed, second EKG obtained, pt sinus tach at 113. currently pt BP 156/77 (103). HR 91, SaO2 95% and RR18
[2021-06-20] MEDS: Adenosine 6 MG/2 ML VIAL IVPUSH (21:40)
[2021-06-20 21:44] VITALS: BP 160/73; PULSE 92; RESP 19; O2SAT 96
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
[2021-06-20 23:25] VITALS: BP 177/83; PULSE 82; RESP 17; O2SAT 96
[2021-06-20 23:49] VITALS: BP 175/78; PULSE 81; RESP 22; TEMP 36.8; O2SAT 95
[2021-06-21] VITALS (9 sets, daily range): BP systolic 131–183; BP diastolic 62–85; PULSE 70–85; RESP 12–18; TEMP 36.7–37.9; O2SAT 94–100
--- NOTE | 2021-06-21 02:59 | PC.NURSE ---
tigerconnect message sent to md de santiago to inquire if repeat troponin is wanted. pt's initial trop drawn at 1822 wa elevated at 18.8. RN will follow up
[2021-06-21] MEDS: Lactated Ringers 1,000 ML 80 ML IVCONT ×2 (03:11→15:44)
[2021-06-21] MEDS: Heparin Sodium,Porcine 5,000 UNIT/ML VIAL 5000 UNIT SUBCUT ×2 (03:21→15:44)
--- NOTE | 2021-06-21 05:21 | PC.NURSE ---
RN received a call from patient's son La looking for an update on his parents specifically the patient's heart. Update provided and son aware that both parents are doing well. Son was happy to hear that his parents were in a room together and asked if that would be the case if they were to be sent to SNF. This RN informed him that I am not sure however his request can be relayed; son would like both patients to go to the same facility and share a room. Any questions/concerns, son can be reached at [phone]
[2021-06-21 06:42] LABS: MANUAL DIFF FLAG NO
[2021-06-21 07:07] LABS: Anion Gap 14 (12-20); Basophils Percent Auto 0.1 % (0-2); Blood Urea Nitrogen 18 mg/dL (9-16); Carbon Dioxide 19 mmol/L (22-29); Chloride 111 mmol/L (96-108); Creatinine Clr Calc Pharmacy 49.8; Estimated Glomerular Filt Rate > 60; Glucose Random 91 mg/dL (60-115); Hematocrit 36.9 % (37.0-47.0); Imm Gran Abs Auto 0.03 X10*3/uL (0.00-0.03); Imm Gran Pct Auto 0.4 % (0.0-0.4); Lymphocytes Absolute Auto 1.5 X10*3/uL (1.2-4.9); Lymphocytes Percent Auto 21.2 % (20-40); Mean Corpuscular HGB Conc 32.5 g/dl (31.0-35.0); Mean Corpuscular Hemoglobin 30.6 pg (27.0-33.0); Mean Corpuscular Volume 94.1 fL (80.0-98.0); Mean Platelet Volume 9.5 fL (9.4-12.3); Monocytes Absolute Auto 0.5 X10*3/uL (0.1-1.2); Monocytes Percent Auto 6.9 % (2-11); Neutrophils Absolute Auto 4.9 x10*3/uL (2.0-8.3); Neutrophils Percent Auto 71.4 % (45-73); Platelet Count 163 X10*3/uL (160-400); Potassium 3.7 mmol/L (3.3-5.1); Red Blood Count 3.92 X10*6/uL (4.20-5.50); Red Cell Distribution Width 13.3 % (11.0-16.0); Sodium 140 mmol/L (135-145); White Blood Count 6.9 X10*3/uL (4.8-10.8)
[2021-06-21 07:13] LABS: Troponin-I High Sensitivity 30.5 ng/L (<3.5-17.0)
[2021-06-21] MEDS: Omeprazole 20 MG CAPSULE.DR PO (07:50)
[2021-06-21] MEDS: Atorvastatin Calcium 80 MG TABLET PO (07:50)
[2021-06-21] MEDS: 0.9 % Sodium Chloride Flush 3 ML SYRINGE IVFLUSH ×2 (07:50→15:45)
[2021-06-21] MEDS: Gabapentin 100 MG CAPSULE PO (07:50)
[2021-06-21] MEDS: Escitalopram Oxalate 5 MG TABLET PO (07:51)
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
[2021-06-21] MEDS: cefTRIAXone sodium 1 GM in 0.9 % Sodium Chloride 50 ML IV (20:22)
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
[2021-06-21] MEDS: Acetaminophen 325 MG TABLET 650 MG PO (22:12)
--- NOTE | 2021-06-21 22:14 | PC.NURSE ---
Pt resting on bed in NAD breathing with ease on RA. Pt medicated with tylenol for elevated temp. Pt offers no complaints/concerns. Pt purewick draining appropriately. bed low locked, rails raised, call mera within reach, bed alarm active and audible.
--- NOTE | 2021-06-21 23:17 | PC.NURSE ---
This RN spoke with pt's daughter Edie and provided update. No questions.
[2021-06-22] VITALS (7 sets, daily range): BP systolic 129–169; BP diastolic 61–88; PULSE 73–104; RESP 14–17; TEMP 36.4–37.4; O2SAT 94–98
--- NOTE | 2021-06-22 00:30 | PC.NURSE ---
pt resting on hb in nad, breathing with ease on ra, vss. pt offers no complaints of pain/discomfort. Pt checked to see if incontinence care needed to be provided, pt purewick draining appropriately, pt clean and dry. pt bed low locked, rails raised, call mera within reach, bed alarm active and audible.
[2021-06-22] MEDS: vancomycin HCL 750 MG in 0.9 % Sodium Chloride 250 ML 265 MG IV (02:41)
[2021-06-22] MEDS: Lactated Ringers 1,000 ML 80 ML IVCONT ×2 (03:48→15:50)
[2021-06-22] MEDS: Heparin Sodium,Porcine 5,000 UNIT/ML VIAL 5000 UNIT SUBCUT ×2 (03:48→15:49)
[2021-06-22] MEDS: Omeprazole 20 MG CAPSULE.DR PO (06:25)
[2021-06-22] MEDS: ondansetron HCL 4 MG/2 ML VIAL IVPUSH (06:36)
--- NOTE | 2021-06-22 06:36 | PC.NURSE ---
Pt reports nausea, is medicated with PRN zofran.
[2021-06-22 08:04] LABS: MANUAL DIFF FLAG NO
[2021-06-22 08:10] LABS: Basophils Percent Auto 0.2 % (0-2); Eosinophils Percent Auto 0.7 % (0-4); Hematocrit 34.8 % (37.0-47.0); Hemoglobin 11.6 g/dl (12.0-16.0); Imm Gran Abs Auto 0.03 X10*3/uL (0.00-0.03); Imm Gran Pct Auto 0.6 % (0.0-0.4); Lymphocytes Absolute Auto 0.9 X10*3/uL (1.2-4.9); Lymphocytes Percent Auto 16.8 % (20-40); Mean Corpuscular HGB Conc 33.3 g/dl (31.0-35.0); Mean Corpuscular Hemoglobin 30.6 pg (27.0-33.0); Mean Corpuscular Volume 91.8 fL (80.0-98.0); Mean Platelet Volume 9.7 fL (9.4-12.3); Monocytes Absolute Auto 0.4 X10*3/uL (0.1-1.2); Monocytes Percent Auto 7.2 % (2-11); Neutrophils Percent Auto 74.5 % (45-73); Platelet Count 153 X10*3/uL (160-400); Red Blood Count 3.79 X10*6/uL (4.20-5.50); White Blood Count 5.4 X10*3/uL (4.8-10.8)
[2021-06-22 08:32] LABS: Alanine Aminotransferase 17 U/L (0-31); Albumin Level 3.2 g/dL (3.5-5.0); Alkaline Phosphatase 41 U/L (39-117); Anion Gap 12 (12-20); Aspartate Amino Transferase 27 U/L (5-31); Bilirubin Total 0.4 mg/dL (0.0-1.0); Blood Urea Nitrogen 10 mg/dL (9-16); Calcium 8.8 mg/dL (8.4-10.2); Carbon Dioxide 24 mmol/L (22-29); Chloride 103 mmol/L (96-108); Creatinine Clr Calc Pharmacy 56.3; Estimated Glomerular Filt Rate > 60; Glucose Fasting 104 mg/dL (60-99); Potassium 2.8 mmol/L (3.3-5.1); Sodium 136 mmol/L (135-145); Total Protein 5.6 g/dL (6.5-8.0)
--- NOTE | 2021-06-22 08:32 | PHA.PROG ---
Admission Date/Time: June 20, 2021 22:34 Indication: Weight in k.7 kg Adjusted body weight in Kg: [place] body weight in Kg: Obesity Dosing Indication % IBW: Serum Creatinine - Last 168 Hours 06/20/21 06/21/21 06/22/21 18: 06:36 08:00 Creatinine 0.96 0.70 Cancelled Estimated CrCl and GFR - Last 168 Hours 06/20/21 06/21/21 06/22/21: 06:36 08:00 Estim Creat Clear Calc 36.3 49.8 Cancelled Estimated GFR 56 > 60 Cancelled Vancomycin Loading Dose: Current Vancomycin Dosing Regimen: 1000MG Q 24 HOURS Vancomycin Monitoring using AUC goal of 400 - 600 range with trough as surrogate marker: AUC 512 Date and Time for next Vancomycin Level to be drawn: 06/24/21 0100 Pharmacist Comments on Vancomycin Plan: WILL CHECK A LEVEL AFTER JUST 2 DOSES, SINCE THIS IS ON HIGHER SIDE Vancomycin dosing will take advantage of SendUs as a clinical decision support tool that uses Bayesian modeling to calculate individual patient's pharmacokinetic parameters and forecast the patient's drug concentration time course with the target goal AUC 24 range of 400 - 600 mg/L/hr.
[2021-06-22] MEDS: Atorvastatin Calcium 80 MG TABLET PO (09:15)
[2021-06-22] MEDS: Escitalopram Oxalate 5 MG TABLET PO (09:15)
[2021-06-22] MEDS: Gabapentin 100 MG CAPSULE PO (09:15)
--- NOTE | 2021-06-22 13:03 | PC.NURSE ---
pt sleeping, wakes to verbal stimulus, pt has no c/o pain or discomfort, monitor technician nsr 90s, vss, pure wick intact, call mera within reach, will continue to monitor.
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
[2021-06-22] MEDS: Potassium Chloride/H20 10 MEQ/100 ML PIGGYBACK 100 MEQ IV ×4 (15:49→19:22)
[2021-06-22] MEDS: 0.9 % Sodium Chloride Flush 3 ML SYRINGE IVFLUSH (15:50)
--- NOTE | 2021-06-22 15:58 | PC.NURSE ---
patient sleeping, wakes to verbal stimulus, vss, paper sealer intact, ivf running per order, k running per order, call mera within reach, will continue to monitor.
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
--- NOTE | 2021-06-22 19:29 | PC.NURSE ---
Addendum entered by Marie Stone RN 06/22/21 19:30: ivf running per order Original Note: patient a&o, no c/o pain or discomfort, pt states shes just very tired and is appreciative of being in a room with her . pt ate about 25% of her dinner. ekg monitor intact, will continue to monitor.
--- NOTE | 2021-06-22 22:10 | PC.NURSE ---
patient sleeping, wakes to verbal stimulus, nsr on monitor, vss, iv antibiotics running per order, will continue to monitor
[2021-06-22] MEDS: cefTRIAXone sodium 1 GM in 0.9 % Sodium Chloride 50 ML IV (22:11)
[2021-06-23] VITALS (7 sets, daily range): BP systolic 140–172; BP diastolic 74–89; PULSE 73–110; RESP 12–18; TEMP 36.7–37; O2SAT 87–100
[2021-06-23] MEDS: vancomycin HCL 1,000 MG in 0.9 % Sodium Chloride 250 ML 270 MG IV (04:04)
[2021-06-23] MEDS: Heparin Sodium,Porcine 5,000 UNIT/ML VIAL 5000 UNIT SUBCUT ×2 (04:14→17:04)
[2021-06-23] MEDS: Lactated Ringers 1,000 ML 80 ML IVCONT ×2 (05:08→22:53)
[2021-06-23 05:09] LABS: MANUAL DIFF FLAG NO
[2021-06-23 05:14] LABS: Basophils Percent Auto 0.3 % (0-2); Eosinophils Percent Auto 0.3 % (0-4); Hematocrit 33.2 % (37.0-47.0); Hemoglobin 11.2 g/dl (12.0-16.0); Imm Gran Abs Auto 0.02 X10*3/uL (0.00-0.03); Imm Gran Pct Auto 0.5 % (0.0-0.4); Lymphocytes Absolute Auto 1.1 X10*3/uL (1.2-4.9); Lymphocytes Percent Auto 28.4 % (20-40); Mean Corpuscular HGB Conc 33.7 g/dl (31.0-35.0); Mean Corpuscular Hemoglobin 30.9 pg (27.0-33.0); Mean Corpuscular Volume 91.7 fL (80.0-98.0); Mean Platelet Volume 9.9 fL (9.4-12.3); Monocytes Absolute Auto 0.5 X10*3/uL (0.1-1.2); Monocytes Percent Auto 12.7 % (2-11); Neutrophils Absolute Auto 2.2 x10*3/uL (2.0-8.3); Neutrophils Percent Auto 57.8 % (45-73); Platelet Count 151 X10*3/uL (160-400); Red Blood Count 3.62 X10*6/uL (4.20-5.50); Red Cell Distribution Width 12.9 % (11.0-16.0); White Blood Count 3.8 X10*3/uL (4.8-10.8)
[2021-06-23 05:54] LABS: Alanine Aminotransferase 16 U/L (0-31); Albumin Level 3.2 g/dL (3.5-5.0); Alkaline Phosphatase 40 U/L (39-117); Anion Gap 11 (12-20); Aspartate Amino Transferase 29 U/L (5-31); Bilirubin Total 0.4 mg/dL (0.0-1.0); Blood Urea Nitrogen 9 mg/dL (9-16); Calcium 8.9 mg/dL (8.4-10.2); Carbon Dioxide 27 mmol/L (22-29); Chloride 102 mmol/L (96-108); Creatinine Clr Calc Pharmacy 52.9; Estimated Glomerular Filt Rate > 60; Glucose Fasting 83 mg/dL (60-99); Potassium 3.6 mmol/L (3.3-5.1); Sodium 136 mmol/L (135-145); Total Protein 5.5 g/dL (6.5-8.0)
[2021-06-23] MEDS: Omeprazole 20 MG CAPSULE.DR PO (06:50)
[2021-06-23] MEDS: Escitalopram Oxalate 5 MG TABLET PO (07:56)
[2021-06-23] MEDS: Gabapentin 100 MG CAPSULE PO (07:56)
[2021-06-23] MEDS: Atorvastatin Calcium 80 MG TABLET PO (07:56)
--- NOTE | 2021-06-23 08:38 | MHC.CM.PN ---
Addendum entered by Yane Galeano 06/23/21 13:50: PLAN IS FOR BOOSTER VACCINE ONCE ASYMPTOMATIC PER DISCUSSION WITH [facility]RECTIONAL OFFICER Original Note: REQUEST FOR BOOSTER COVID VACCINE MADE. DAUGHTER/HCP IS IN AGREEMENT. CASE MANAGEMENT FOLLOWING FOR LTC BED OFFER.
--- NOTE | 2021-06-23 10:42 | P.CDIC_ITS ---
CDI Concurrent Query Documentation Clarification: PHYSICIAN'S DOCUMENTATION REQUEST Date of Query: 06/23/21 1042 Patient Name: Lexi Vásquez Admit Date: 06/20/21 Dear Doctor, A review of the medical record indicates additional documentation may be needed. Please review below and update the documentation accordingly. Risk Factors/Clinical Indicators/Treatments Lab findings: potassium 2.8 L Potassium choride IV Based on the above, could you clarify in the Progress Notes the appropriate diagnosis, if significant, that supports the above abnormalities and additional evaluation, monitoring, and/or treatment rendered: * Hypokalemia or other etiology of lab findings * Labs indicate a diagnosis of * Other (please specify) * Unable to determine Use of terms such as suspected, likely, concern for, or probable (associated with a specific diagnosis that is being evaluated, monitored, or treated as if it exists) are acceptable and can be coded in the inpatient setting, when documented at the time of discharge. Thank you, Deanna Rodriguez [facility], CDIS Extension: [phone] Please use your independent medical judgment in providing your response. THIS QUERY IS PART OF THE PERMANENT MEDICAL RECORD Provider Response: Other Other Diagnosis: labs indicated diagnosis of hypokalemia
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
--- NOTE | 2021-06-23 15:29 | PC.NURSE ---
second call for report to [facility] unsuccessful.
[2021-06-23] MEDS: cefTRIAXone sodium 1 GM in 0.9 % Sodium Chloride 50 ML IV (22:37)
[2021-06-24] VITALS (8 sets, daily range): BP systolic 124–174; BP diastolic 65–85; PULSE 76–92; RESP 18–20; TEMP 36.2–37.5; O2SAT 87–98
--- NOTE | 2021-06-24 | ECG_ITS ---
Test Reason : svt monitor Blood Pressure : / mmHG Vent. Rate : 076 BPM Atrial Rate : 076 BPM P-R Int : 114 ms QRS Dur : 066 ms QT Int : 420 ms P-R-T Axes : 054 -29 031 degrees QTc Int : 472 ms Normal sinus rhythm Normal ECG When compared with ECG of 20-JUN-2021 21:25, Vent. rate has decreased BY 121 BPM Right bundle branch block is no longer Present Referred By: Bridget Araujo Electronically Signed By:Delvis Koch
[2021-06-24 01:26] LABS: Vancomycin Trough 7.4 mcg/mL (10.0-20.0)
[2021-06-24] MEDS: Heparin Sodium,Porcine 5,000 UNIT/ML VIAL 5000 UNIT SUBCUT (03:19)
[2021-06-24] MEDS: vancomycin HCL 1,000 MG in 0.9 % Sodium Chloride 250 ML 270 MG IV (03:20)
[2021-06-24] MEDS: Omeprazole 20 MG CAPSULE.DR PO (06:15)
[2021-06-24 06:23] LABS: MANUAL DIFF FLAG NO
[2021-06-24 06:45] LABS: Basophils Percent Auto 0.2 % (0-2); Eosinophils Absolute Auto 0.1 X10*3/uL (0.0-0.4); Eosinophils Percent Auto 1.4 % (0-4); Hematocrit 33.2 % (37.0-47.0); Hemoglobin 11.2 g/dl (12.0-16.0); Imm Gran Abs Auto 0.03 X10*3/uL (0.00-0.03); Imm Gran Pct Auto 0.7 % (0.0-0.4); Lymphocytes Absolute Auto 1.3 X10*3/uL (1.2-4.9); Lymphocytes Percent Auto 28.6 % (20-40); Mean Corpuscular HGB Conc 33.7 g/dl (31.0-35.0); Mean Corpuscular Hemoglobin 30.6 pg (27.0-33.0); Mean Corpuscular Volume 90.7 fL (80.0-98.0); Mean Platelet Volume 10.1 fL (9.4-12.3); Monocytes Absolute Auto 0.5 X10*3/uL (0.1-1.2); Monocytes Percent Auto 11.7 % (2-11); Neutrophils Absolute Auto 2.6 x10*3/uL (2.0-8.3); Neutrophils Percent Auto 57.4 % (45-73); Platelet Count 179 X10*3/uL (160-400); Red Blood Count 3.66 X10*6/uL (4.20-5.50); Red Cell Distribution Width 12.7 % (11.0-16.0); White Blood Count 4.4 X10*3/uL (4.8-10.8)
[2021-06-24 07:02] LABS: Alanine Aminotransferase 18 U/L (0-31); Alkaline Phosphatase 39 U/L (39-117); Anion Gap 10 (12-20); Aspartate Amino Transferase 31 U/L (5-31); Bilirubin Total 0.4 mg/dL (0.0-1.0); Blood Urea Nitrogen 8 mg/dL (9-16); Calcium 8.3 mg/dL (8.4-10.2); Carbon Dioxide 31 mmol/L (22-29); Chloride 98 mmol/L (96-108); Estimated Glomerular Filt Rate > 60; Glucose Fasting 87 mg/dL (60-99); Potassium 3.4 mmol/L (3.3-5.1); Sodium 136 mmol/L (135-145); Total Protein 5.2 g/dL (6.5-8.0)
[2021-06-24] MEDS: Atorvastatin Calcium 80 MG TABLET PO (09:56)
[2021-06-24] MEDS: Gabapentin 100 MG CAPSULE PO (09:56)
[2021-06-24] MEDS: 0.9 % Sodium Chloride Flush 3 ML SYRINGE IVFLUSH ×2 (09:56→15:25)
[2021-06-24] MEDS: Escitalopram Oxalate 5 MG TABLET PO (09:56)
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
[2021-06-25] MEDS: 0.9 % Sodium Chloride Flush 3 ML SYRINGE IVFLUSH ×2 (00:33→10:35)
[2021-06-25 04:00] VITALS: BP 148/79; PULSE 84; RESP 16; TEMP 37.1; O2SAT 93
[2021-06-25] MEDS: Omeprazole 20 MG CAPSULE.DR PO (05:23)
[2021-06-25 05:55] LABS: MANUAL DIFF FLAG NO
[2021-06-25 06:17] LABS: Alanine Aminotransferase 16 U/L (0-31); Alkaline Phosphatase 39 U/L (39-117); Anion Gap 10 (12-20); Aspartate Amino Transferase 27 U/L (5-31); Bilirubin Total 0.4 mg/dL (0.0-1.0); Blood Urea Nitrogen 8 mg/dL (9-16); Calcium 8.6 mg/dL (8.4-10.2); Carbon Dioxide 32 mmol/L (22-29); Chloride 97 mmol/L (96-108); Creatinine Clr Calc Pharmacy 49.8; Estimated Glomerular Filt Rate > 60; Glucose Fasting 92 mg/dL (60-99); Potassium 3.3 mmol/L (3.3-5.1); Sodium 136 mmol/L (135-145); Total Protein 5.4 g/dL (6.5-8.0)
[2021-06-25 06:53] LABS: Basophils Percent Auto 0.2 % (0-2); Eosinophils Absolute Auto 0.1 X10*3/uL (0.0-0.4); Eosinophils Percent Auto 1.4 % (0-4); Hematocrit 31.9 % (37.0-47.0); Hemoglobin 10.7 g/dl (12.0-16.0); Imm Gran Abs Auto 0.03 X10*3/uL (0.00-0.03); Imm Gran Pct Auto 0.7 % (0.0-0.4); Lymphocytes Absolute Auto 1.4 X10*3/uL (1.2-4.9); Lymphocytes Percent Auto 31.6 % (20-40); Mean Corpuscular HGB Conc 33.5 g/dl (31.0-35.0); Mean Corpuscular Hemoglobin 30.2 pg (27.0-33.0); Mean Corpuscular Volume 90.1 fL (80.0-98.0); Monocytes Absolute Auto 0.6 X10*3/uL (0.1-1.2); Monocytes Percent Auto 13.9 % (2-11); Neutrophils Absolute Auto 2.3 x10*3/uL (2.0-8.3); Neutrophils Percent Auto 52.2 % (45-73); Platelet Count 190 X10*3/uL (160-400); Red Blood Count 3.54 X10*6/uL (4.20-5.50); Red Cell Distribution Width 12.6 % (11.0-16.0); White Blood Count 4.3 X10*3/uL (4.8-10.8)
[2021-06-25 07:03] VITALS: BP 153/72; PULSE 76; RESP 16; TEMP 37.3; O2SAT 96
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
[2021-06-25] MEDS: Gabapentin 100 MG CAPSULE PO (10:35)
[2021-06-25] MEDS: Escitalopram Oxalate 5 MG TABLET PO (10:35)
[2021-06-25] MEDS: Enoxaparin Sodium 40 MG/0.4 ML SYRINGE SUBCUT (10:36)
[2021-06-25] MEDS: Atorvastatin Calcium 80 MG TABLET PO (10:36)
[2021-06-25] MEDS: Potassium Chloride ER 20 MEQ TAB.ER.PRT 40 MEQ PO (10:36)
[2021-06-25 11:50] VITALS: BP 169/70; PULSE 76; RESP 16; TEMP 36.4; O2SAT 94
[2021-06-25 12:33] LABS: COVID-19 Test Positive (Negative)
[2021-06-25 14:00] VITALS: BP 169/70; PULSE 76; O2SAT 94
[2021-06-25 14:57] VITALS: BP 147/68; PULSE 76; RESP 20; TEMP 37.3; O2SAT 97
--- NOTE | 2021-06-25 15:44 | P.DS_ITS ---
DS: Providers Provider Date of Service: 06/25/21 Date of admission: 06/20/21 22:34 Primary care physician: Herbie Lomeli MD DS: Diagnosis Discharge Diagnosis (1) COVID-19 virus infection: Status: Acute (2) Urinary tract infection: Status: Acute (3) Adult failure to thrive: Status: Acute DS: Summary Hospital Course Hospital Course: Patient was admitted for viral sepsis secondary to COVID pneumonia complicated by failure to thrive and leukopenia. Patient was never hypoxic, did not receive any specific therapies. She does have bilateral opacities on chest x-ray, but continues to do well. She had no evidence of urinary tract infection or bacterial pneumonia and therefore no treated with antibiotics. She did have 1 event of SVT which did not recur. She had some hypokalemia that was replaced. Patient is reporting that she is asymptomatic. [facility]. She should be monitored for worsening signs or symptoms of COVID. Time Spent with Patient Time attestation: Total time spent providing and/or coordinating discharge services: Discharge coordination time: Greater than 30 minutes Quality: Stroke Does the patient have a stroke diagnosis?: No Physical Exam Vital Signs: Vital Signs: Last Vital Signs Temp 99.1 F 06/25/21 14:57 Pulse 76 06/25/21 14:57 Resp 20 06/25/21 14:57 BP 147/68 H 06/25/21 14:57 Pulse Ox 97 06/25/21 14:57 BMI result Body Mass Index 20.4 General: AO X 3, no acute distress Resp:? CTA bilateral, no accessory muscles used CVS: S1,S2,RRR GI: soft, non tender, non distended Neuro:? bed bound, alert Psych: appropriate affect, questionable insight? DS: Data Data Completed and Pending Labs on day of discharge: Laboratory Results - last 24 hr 06/25/21 06/25/21 06/25/21 05:24 05:24 12:10 WBC 4.3 L RBC 3.54 L Hgb 10.7 L Hct 31.9 L MCV 90.1 MCH 30.2 MCHC 33.5 RDW 12.6 Plt Count 190 MPV 10.0 Immature Gran % (Auto) 0.7 H Neut % (Auto) 52.2 Lymph % (Auto) 31.6 [place] % (Auto) 13.9 H Eos % (Auto) 1.4 Baso % (Auto) 0.2 Lymph # (Auto) 1.4 [place] # (Auto) 0.6 Eos # (Auto) 0.1 Baso # (Auto) 0.0 Abs Immat Gran (auto) 0.03 Absolute Neuts (auto) 2.3 Absolute Nucleated RBC 0.000 Nucleated RBC % (auto) 0.0 Sodium 136 Potassium 3.3 Chloride 97 Carbon Dioxide 32 H Anion Gap 10 L BUN 8 L Creatinine 0.70 Estim Creat Clear Calc 49.8 Estimated GFR > 60 Fasting Glucose 92 Calcium 8.6 Total Bilirubin 0.4 AST 27 ALT 16 Alkaline Phosphatase 39 Total Protein 5.4 L Albumin 3.0 L COVID-19 (PENG) Positive A COVID-19 Clin Com See Note Preliminary micro results at discharge 06/22/21 01:28 Blood Culture - Preliminary Blood - Venous No growth after 48 hours. 06/22/21 01:28 Blood Culture - Preliminary Blood - Venous No growth after 48 hours. 06/20/21 19:35 Blood Culture - Preliminary Blood - Venous No growth after 48 hours. Discharge Plan Discharge Patient Disposition: er [facility] Discharge Diagnosis: covid, ftt, ms Referrals: Herbie Lomeli MD [Primary Care Provider] - 1 Week Discharge Medications: Continued atorvastatin 80 mg tablet 1 tab PO DAILY RF: 0 citalopram 10 mg tablet 1 tab PO DAILY RF: 0 omeprazole 20 mg capsule,delayed release(DR/EC) 1 cap PO DAILY RF: 0 gabapentin 100 mg capsule 1 cap PO DAILY RF: 0 midodrine 5 mg tablet 1 tab PO BID RF: 0 Discharge Orders: Discharge Order (Routine); Ordered 06/25/21 Ordered By: Lamont Amezcua Diet: advance to usual diet Activity on Discharge: As tolerated Stand Alone Forms: Patient Portal Discharge page Care Plan Goals: recovery Health Concerns: covid Plan of Treatment: monitor for worsening signs or symptoms of covid, currently asypmtomatic Assessment: see above
--- NOTE | 2021-06-25 15:54 | MHC.CM.PN ---
pt dcd today at 530 to [facility] at 530 dgter notified mds completed and faxed to [facility]
== END 2021-06-25 19:52 | disposition skilled nursing facility (03) | DRG 871 ==
LOC: HO.ED 21:03 → HO.EDOVER 22:41 → HO.IMC 06-23 14:32
PROVIDERS: Hospitalist; Admitting Provider Internal Medicine; Emergency Provider Emergency Medicine; PCP Internal Medicine Medical Oncology; Visit Provider Internal Medicine
DX: A41.89 Other specified sepsis (principal); U07.1 COVID-19; T76.11XA Adult physical abuse, suspected, initial encounter; I47.1 Supraventricular tachycardia; I10 Essential (primary) hypertension; G35 Multiple sclerosis; E87.6 Hypokalemia; Z74.01 Bed confinement status; G30.9 Alzheimer's disease, unspecified; F41.9 Anxiety disorder, unspecified; D72.819 Decreased white blood cell count, unspecified; F02.80 Dementia in other diseases classified elsewhere, unspecified severity, without behavioral disturbance, psychotic disturbance, mood disturbance, and anxiety; R62.7 Adult failure to thrive; Z68.20 Body mass index [BMI] 20.0-20.9, adult; Z88.2 Allergy status to sulfonamides; Z88.5 Allergy status to narcotic agent; Z88.6 Allergy status to analgesic agent; Z79.899 Other long term (current) drug therapy
CPT/HCPCS: 36415; 71045; 80048; 80053; 80076; 80202; 81001; 83605; 83690; 83880; 84484; 85025; 87040; 87086; 87147; 87205; 87635; 93005; 97162; 99285; J0153; J0696; J1100; J1650; J2405; J3370